=== PATIENT | female | born 1975 | race Caucasian/White ===

== ENCOUNTER 2018-07-09 14:31 | Emergency (ER) | payer BC ==
[~2018-07-09] VITALS: Ht 152.4 cm; Wt 64.9 kg
[2018-07-09 15:10] VITALS: BP 127/74
[2018-07-09] MEDS: KETOROLAC 30 MG/ML VIAL IVP ONE (16:18)
[2018-07-09 16:25] LABS: BASOPHILS # (AUTO) 0.1 K/uL (0.00-0.22); BASOPHILS % (AUTO) 0.6 % (0.0-2.0); EOSINOPHILS % (AUTO) 0.5 % (0.0-4.0); HEMATOCRIT 41.4 % (36-48); HEMOGLOBIN 13.5 g/dL (12.0-16.0); LYMPHOCYTES # (AUTO) 2.4 K/uL (2.5-16.5); LYMPHOCYTES % (AUTO) 30.5 % (20.5-51.1); MEAN CORPUSCULAR HEMOGLOBIN 27 pg (27-31); MEAN CORPUSCULAR HGB CONC 33 g/dL (33-37); MEAN CORPUSCULAR VOLUME 84.1 fL (80-94); MONOCYTES # (AUTO) 0.8 K/uL (0.8-1.0); MONOCYTES % (AUTO) 10.5 % (1.7-9.3); NEUTROPHILS # (AUTO) 4.6 K/uL (1.8-7.7); NEUTROPHILS % (AUTO) 57.9 % (42.2-75.2); PLATELET COUNT (AUTO) 244 K/uL (140-450); RED BLOOD CELL COUNT(AUTO) 4.92 MIL/uL (4.20-5.40); RED CELL DISTRIBUTION WIDTH 15.1 % (11.6-13.7)
[2018-07-09] MEDS: NACL 0.9% 1,000 ML IV SCH (16:25)
[2018-07-09 16:40] LABS: APPEARANCE,URINE CLEAR (CLEAR); BILIRUBIN,URINE NEGATIVE (NEGATIVE); BLOOD, URINE NEGATIVE (NEGATIVE); COLOR,URINE YELLOW (YELLOW); LEUKOCYTE ESTERASE ,URINE NEGATIVE (NEGATIVE); NITRITE, URINE NEGATIVE (NEGATIVE); PH,URINE 6.5 (5.0-9.0); UGLUCOSE NEGATIVE (NEGATIVE)
[2018-07-09 16:45] LABS: ALBUMIN 4.3 g/dL (3.4-5.0); ANION GAP 15.1 (8-16); CARBON DIOXIDE 28.5 mmol/L (21-32); CREATININE 0.8 mg/dL (0.6-1.3); POTASSIUM 3.6 mmol/L (3.5-5.1); TOTAL BILIRUBIN 0.4 mg/dL (0.0-1.0)
[2018-07-09 17:31] VITALS: BP 122/69
== END 2018-07-09 17:32 | disposition home or self-care (01) ==
LOC: MED 14:31
DX: D25.9 Leiomyoma of uterus, unspecified (principal)
CPT/HCPCS: 36415; 74176; 80053; 81003; 81025; 83690; 85025; 96374; 99285; J1885; J7030